=== PATIENT | male | born 1945 | race Asian ===

== ENCOUNTER 2019-02-08 06:34 | Day surgery (SDC) | payer MEDICARE, OTHER | END 2019-02-08 13:51 | disposition home or self-care (01) | LOC: GIL 06:34 | DX: K94.23 Gastrostomy malfunction (principal); Y84.8 Other medical procedures as the cause of abnormal reaction of the patient, or of later complication, without mention of misadventure at the time of the procedure; C05.9 Malignant neoplasm of palate, unspecified; C02.9 Malignant neoplasm of tongue, unspecified | CPT/HCPCS: 43762 ==